=== PATIENT | female | born 1945 | race Caucasian/White ===

== ENCOUNTER 2017-10-12 08:08 | Outpatient (CLI) | END 2017-10-12 08:09 | disposition short-term general hospital (02) | LOC: AMBL 08:08 | PROVIDERS: ATTEND Internal Medicine | DX: R06.02 Shortness of breath (principal); R07.9 Chest pain, unspecified; R11.2 Nausea with vomiting, unspecified; R10.84 Generalized abdominal pain; R68.83 Chills (without fever) ==